=== PATIENT | male | born 1970 | race Caucasian/White ===

== ENCOUNTER 2021-01-21 07:47 | Emergency (ER) | payer OTHER ==
[2021-01-21] MEDS ORDERED: ATARAX25 MG PO (10:09)
== END 2021-01-21 10:23 | disposition home or self-care (01) ==
LOC: FER 07:47
DX: L50.0 Allergic urticaria (principal); I10 Essential (primary) hypertension; Z91.018 Allergy to other foods; Z79.899 Other long term (current) drug therapy
CPT/HCPCS: 96372; J1200; J2930; J3410